=== PATIENT | female | born 1965 | race Caucasian/White ===

== ENCOUNTER 2024-07-30 07:01 | Day surgery (SDC) | payer OTHER ==
[~2024-07-30] VITALS: Ht 165.1 cm; Wt 112.4 kg
[~2024-07-30 07:01] MED LIST: ALPH0.156 OU; DULA3PEN SC; ERGO500029 PO; LANTINJ4 SC; LOSA25TA13 PO; LOVA20TA2 PO; METF10004 PO; OMEP40CA5 PO; PARO20TA3 PO; PARO5TAB PO; RIZA10TA2 PO; XALA0.007 OU
[2024-07-30] MEDS ORDERED: fentaNYL 100 MCG/2 ML INJECTION As Ordered ONE (07:09)
[2024-07-30] MEDS: LIDOCAINE 3.5 % 1ML OPHTH TOPICAL GEL OU ONE (08:37)
[2024-07-30] MEDS ORDERED: propofoL 200 MG/20 ML VIAL As Ordered ONE (10:38)
[2024-07-30] MEDS ORDERED: MIDAZOLAM INJ 2MG/2ML VIAL As Ordered ONE (10:40)
[2024-07-30] MEDS: POVIDONE-IODINE 5% OPHTH PREP SOL 30ML As Ordered ONE (10:48)
[2024-07-30] MEDS: TOBRADEX OPHTH OINT 3.5 GM As Ordered ONE (11:09)
[2024-07-30] MEDS: LIDOCAINE 2% W/EPINEPHRINE 20ML VIAL **PRES FREE As Ordered ONE (11:09)
[2024-07-30 11:17] VITALS: BP 176/88; TEMP 97.4; O2SAT 97
== END 2024-07-30 11:35 | disposition home or self-care (01) ==
LOC: M SDC 07:01
PROVIDERS: ATTEND Ophthalmology
DX: H02.831 Dermatochalasis of right upper eyelid (principal); H02.832 Dermatochalasis of right lower eyelid; E11.9 Type 2 diabetes mellitus without complications; G47.33 Obstructive sleep apnea (adult) (pediatric); Z88.0 Allergy status to penicillin; Z88.8 Allergy status to other drugs, medicaments and biological substances; Z79.899 Other long term (current) drug therapy
CPT/HCPCS: 15822; 88300; J2250; J3010